=== PATIENT | male | born 2000 | race Two or more races ===

== ENCOUNTER 2023-04-22 15:48 | Emergency (ER) | payer OTHER ==
[~2023-04-22] VITALS: Ht 182.9 cm; Wt 95.3 kg
[2023-04-22] MEDS ORDERED: KETOROLAC TROMETHAMINE 30 MG VIAL IM STA (17:26)
[2023-04-22 18:01] LABS: HEMATOCRIT 44.6 % (39.0-48.0); HEMOGLOBIN 14.9 g/dL (13-16.00); MEAN CORPUSCULAR HEMOGLOBIN 29.1 pg (27.00-32.0); MEAN CORPUSCULAR HGB CONC 33.4 g/dl (32.0-36.0); PLATELET COUNT 204 K/uL (150-450); RED BLOOD COUNT 5.12 M/uL (4.00-6.00); RED CELL DISTRIBUTION WIDTH 13.5 % (11.5-14.5)
[2023-04-22 18:25] LABS: ALBUMIN 3.9 gm/dL (3.4-5.0); BILIRUBIN TOTAL 0.29 mg/dL (0.3-1.2); CALCIUM 9.2 mg/dL (8.5-10.1); CREATININE SERUM 1.38 mg/dL (0.70-1.30); GFR 63.85; GLOBULINA 3.6 G/DL (2.4-3.5); POTASSIUM 3.91 mEq/L (3.5-5.1); TOTAL PROTEIN 7.5 gm/dL (6.4-8.2)
[2023-04-22] MEDS ORDERED: ZYRTEC10 MG PO (18:27)
[2023-04-22] MEDS ORDERED: OSEL75CA PO (18:27)
[2023-04-22] MEDS ORDERED: ABATINEX680 MG PO (18:27)
[2023-04-22] MEDS ORDERED: MUCINEX DM ER1 EACH PO (18:27)
== END 2023-04-22 19:21 | disposition home or self-care (01) ==
LOC: ER 15:48
PROVIDERS: General Practice
DX: J10.1 Influenza due to other identified influenza virus with other respiratory manifestations (principal); Z20.822 Contact with and (suspected) exposure to COVID-19